=== PATIENT | female | born 1990 | race Two or more races ===

== ENCOUNTER 2018-10-02 20:21 | Emergency (ER) | payer MEDICAID ==
[~2018-10-02] VITALS: Ht 154.9 cm; Wt 54.4 kg
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
[2018-10-02] MEDS ORDERED: SILVADENE20 GM TP (21:06)
[2018-10-02 21:17] VITALS: BP 119/96
[2018-10-02 21:37] VITALS: BP 119/96
--- NOTE | 2018-10-02 21:37 | NUR ---
ED Nurse Note: pt cleared to be d/c per ER provider, pt discharge and aftercare instruction provided w/ prescription, pt education done via discussion and handout, pt advised to follow up with pcp or return to ed if sx worsen or new sx develop, pt verbalized understanding and agrees with plan, vss, ambulatory w/steady gait, left w/ all belongings. pt accompanied by boyfriend, pt wound care done.
== END 2018-10-02 21:38 | disposition home or self-care (01) ==
LOC: EMR 20:49
DX: T24.032A Burn of unspecified degree of left lower leg, initial encounter (principal); X19.XXXA Contact with other heat and hot substances, initial encounter; Y92.9 Unspecified place or not applicable
CPT/HCPCS: 99282